=== PATIENT | female | born 1955 | race Caucasian/White ===

== ENCOUNTER 2017-01-25 01:04 | Emergency (ER) | payer OTHER ==
[2017-01-25 01:15] VITALS: BP 138/91; PULSE 77; TEMP 98.6; BMI 25.0
--- NOTE | 2017-01-25 01:16 | PDOC ---
History of Present Illness - General Chief Complaint: Bite Stated Complaint: BEE STING LEFT HAND - History of Present Illness Initial Comments: This 61-year-old woman, with no significant past medical history but sensitivity /ALLERGY to insect venom, presents with swollen left hand approximately 30 hours after apparent bee sting. Patient states that she was gardening yesterday at approximately 4 PM when an insect which she identified as a bee stung her on the left hand between the third and fourth fingers. Her believes he took the stinger out of the wound. Subsequent to this, the patient used an EpiPen that she was prescribed by her doctor. She also applied ice the area and elevated the arm. She took no other medications. Today, she has had progressive swelling and discomfort of the hands with edema now extending to the wrist. She denies any lip/tongue edema. She has had no difficulty swallowing or breathing. She states that her sensitivity to insect venom has only caused local swelling and discomfort and she has never had any anaphylactic reaction to insect bites. Past History - Past Medical History Allergies/Adverse Reactions: Allergies Allergy/AdvReac Type Severity Reaction Status Date / Time No Known Drug Allergies Allergy Unverified 10/21/14 10:53 Home Medications: Ambulatory Orders Clobetasol Propionate/Emoll [Clobetasol Emollient 0.05% Crm] 1 gm TP BID #30 gm 01/25/17 Prednisone [Deltasone -] 40 mg PO DAILY #8 tablet 01/25/17 Anemia: No Asthma: No Cancer: No Cardiac Disorders: Yes (HEART MURMUR) CVA: No COPD: No CHF: No Dementia: No Diabetes: No GI Disorders: No Disorders: No HTN: No Hypercholesterolemia: Yes Liver Disease: No Seizures: No Thyroid Disease: No - Surgical History Abdominal Surgery: No Appendectomy: No Cardiac Surgery: No Cholecystectomy: No Lung Surgery: No Neurologic Surgery: No Orthopedic Surgery: No - Psycho/Social/Smoking Cessation Hx Anxiety: No Suicidal Ideation: No Smoking History: Current every day smoker Have you smoked in the past 12 months: Yes Number of Cigarettes Smoked Daily: 8 Information on smoking cessation initiated: Yes 'Breaking Loose' booklet given: 11/21/14 Hx Alcohol Use: Yes (0-2 DRINKS DAILY) Drug/Substance Use Hx: No Substance Use Type: None Review of Systems - Review of Systems Able to Perform ROS?: Yes Comments:: 12 point review of systems is negative except for what is noted in the history of present illness *Physical Exam - Vital Signs Last Vital Signs Temp Pulse Resp BP Pulse Ox 98.6 F 77 18 138/91 96 01/25/17 01:12 01/25/17 01:12 01/25/17 01:12 01/25/17 01:01/25/17 01:12 - Physical Exam Comments: GENERAL: Adult female, alert and oriented 3, in no acute distress HEAD: Normal with no signs of trauma. EYES: PERRLA, EOMI, sclera anicteric, conjunctiva clear. ENT: Ears normal, nares patent, oropharynx clear without exudates. Moist mucous membranes. Lips/tongue/uvula are nonedematous NECK: Normal range of motion, supple without lymphadenopathy, JVD, or masses. No stridor LUNGS: Breath sounds equal, clear to auscultation bilaterally. No wheezes, and no crackles. HEART:Regular rate and rhythm, normal S1 and S2 without murmur, rub or gallop. ABDOMEN:.normal bowel sounds No guarding,tenderness or rebound.No masses No distention. EXTREMITIES: Left upper extremitymarked edema of all fingers and hand ; flexion and extension limited but still possible No erythema/fluctuance/ lymphangitic streaking or other evidence of cellulitis Remainder of the extremity exam is normal NEUROLOGICAL: Cranial nerves II through XII grossly intact. Normal speech. No focal neurological deficits. MUSCULOSKELETAL: Back non-tender to palpation, no CVA tenderness Progress Note - Progress Note Progress Note: This 61-year-old woman with a history of sensitivity insect venom presents a little over 24 hours after being stung by an insect on the left hand. The hand has become markedly edematous since then. Forearm is not involved and no evidence of compartment syndrome. There is no history of facial edema or airway compromise. Patient will be given 125 mg of Solu-Medrol IM to treat her large local reaction to the insect venom. Because she has had itchiness as well as discomfort of the hand, prescriptions for prednisone 40 mg daily for 4 days as well as clobetasol 0.5% cream for topical treatment of the area will be sent to her pharmacy. Also, she can take antihistamines as needed for the itching ( nonsedating during the day/Benadryl at night). Patient will be given Benadryl 25 mg now. Patient advised to return to ER if swelling is persistent or progressive; also, patient and her have been advised to return or see her doctor if there is any evidence of secondary infection in the area (redness/drainage/increased pain) *DC/Admit/Observation/Transfer Diagnosis at time of Disposition: Allergic reaction to bee sting - Discharge Dispostion Disposition: HOME Condition at time of disposition: Stable - Prescriptions Prescriptions: Clobetasol Propionate/Emoll [Clobetasol Emollient 0.05% Crm] 1 gm TP BID #30 gm Prednisone [Deltasone -] 40 mg PO DAILY #8 tablet - Referrals Referrals: Allyn Pace MD [Primary Care Provider] - - Patient Instructions Printed Discharge Instructions: DI for General Allergic Reactions, DI for Insect Bites and Stings Additional Instructions: Prednisone 40 mg daily for the next 4 days (take with food) Clobetasol cream twice a day to area of swelling for next 5 days Antihistamine as needed for itching(Zyrtec/Claritin during the day; Benadryl at night) Continue cool compresses and elevation of the left arm for the next few days Return here or see your doctor if area becomes red/painful/more swollen followup with your doctor within 1 week
[2017-01-25] MEDS ORDERED: methylPREDNISolone NA SUCC 125 MG/2 ML VIAL IVPB ONE (01:35)
[2017-01-25] MEDS ORDERED: diphenhydrAMINE HCL 25 MG CAPSULE (FP) PO ONE ×2 (01:36→01:46)
[2017-01-25] MEDS ORDERED: methylPREDNISolone NA SUCC 125 MG/2 ML VIAL IM ONE (01:46)
[2017-01-25] MEDS ORDERED: methylPREDNISolone NA SUCC 125 MG/2 ML VIAL ONE (01:47)
== END 2017-01-25 02:03 | disposition home or self-care (01) ==
LOC: FER 01:04
PROC: 3E023GC Introduction of Other Therapeutic Substance into Muscle, Percutaneous Approach (ICD-10-PCS; principal; 2017-01-25)
DX: T63.441A Toxic effect of venom of bees, accidental (unintentional), initial encounter (principal); Y92.096 Garden or yard of other non-institutional residence as the place of occurrence of the external cause; Y93.9 Activity, unspecified; R01.1 Cardiac murmur, unspecified; E78.00 Pure hypercholesterolemia, unspecified; F17.210 Nicotine dependence, cigarettes, uncomplicated
CPT/HCPCS: 99281-25

== ENCOUNTER 2020-02-01 17:40 | Emergency (ER) | payer OTHER ==
[2020-02-01] MEDS ORDERED: DIPHTH,PERTUSS(ACELL),TET 0.5 ML DISP.SYRIN IM ONE ×2 (17:47→17:58)
[2020-02-01 17:56] VITALS: BP 156/100; PULSE 81; TEMP 98; BMI 25.7
--- NOTE | 2020-02-01 18:13 | PDOC ---
History of Present Illness - General Chief Complaint: Bite Stated Complaint: BEE STING YESTERDAY TO LEFT HAND Time Seen by Provider: 02/01/20 17:43 - History of Present Illness Initial Comments: 02/01/20 18:03 64 F smoker with allergy to bee venom presented to the ED after an urgent care. She had a bee stint yesterday while outside. The bee stint was completely removed and disposed per . Quickly, she use epi pen as preventive medication. Airway was always intact. This morning, she woke up with a swollen left arm. She went to an urgent care where they gave her a one dose of prednisone and augmentin, and prescription of prednisone. She still got bothered by the progressive swelling on her fingers and arms. This is why she is here. While she is at the ED, she is hemodynamically stable, airway is stable. Denies nausea/vomiting/diarrhea/difficulty breathing. PMHX: as in HPI PSHX: none Meds: none Allergies: bee venom Tob: 10 cigs per day. Etoh: 3 glass per day. Rec drugs: denies ROS GENERAL/CONSTITUTIONAL: No fever or chills. No weakness. HEAD, EYES, EARS, NOSE AND THROAT: No change in vision. No ear pain or discharge. No sore throat. CARDIOVASCULAR: No chest pain or shortness of breath RESPIRATORY: No cough, wheezing, or hemoptysis. GASTROINTESTINAL: No nausea, vomiting, diarrhea or constipation. GENITOURINARY: No dysuria, frequency, or change in urination. MUSCULOSKELETAL: left arm pain/swelling. No neck or back pain. SKIN: No rash NEUROLOGIC: No headache, vertigo, loss of consciousness, or change in strength/sensation. ENDOCRINE: No increased thirst. No abnormal weight change HEMATOLOGIC/LYMPHATIC: No anemia, easy bleeding, or history of blood clots. ALLERGIC/IMMUNOLOGIC: No hives or skin allergy. PE GENERAL: Awake, alert, and fully oriented, in no acute distress HEAD: No signs of trauma, normocephalic, atraumatic EYES: PERRLA, EOMI, sclera anicteric, conjunctiva clear ENT: Auricles normal inspection, hearing grossly normal, nares patent, oropharynx clear without exudates. Moist mucosa NECK: Normal ROM, supple, no lymphadenopathy, JVD, or masses LUNGS: No distress, speaks full sentences, clear to auscultation bilaterally HEART: Regular rate and rhythm, normal S1 and S2, no murmurs, rubs or gallops, peripheral pulses normal and equal bilaterally. ABDOMEN: Soft, nontender, normoactive bowel sounds. No guarding, no rebound. No masses EXTREMITIES : Normal range of motion, +edema on the left arm. +Erythema, nontender, edematous. fourth digit has bruises. NEUROLOGICAL: Cranial nerves II through XII grossly intact. Normal speech, normal gait, no focal sensorimotor deficits SKIN: Warm, Dry, normal turgor, no rashes or lesions noted Past History - Medical History Allergies/Adverse Reactions: Allergies Allergy/AdvReac Type Severity Reaction Status Date / Time bee venom protein (honey bee) Allergy Intermediate Swelling Verified 02/01/20 17:42 No Known Drug Allergies Allergy Intermediate Verified 02/01/20 17:57 Home Medications: Ambulatory Orders predniSONE [Deltasone -] 40 mg PO DAILY #8 tablet 01/25/17 Amoxicillin/Potassium Clav [Augmentin 875-125 Tablet] 1 tab PO BID 02/01/20 Cephalexin [Keflex] 500 mg PO QID 7 Days #28 capsule 02/01/20 Rosuvastatin Calcium [Crestor] 5 mg PO DAILY 02/01/20 Anemia: No Asthma: No Cancer: No Cardiac Disorders: Yes (HEART MURMUR) CVA: No COPD: No CHF: No Dementia: No Diabetes: No GI Disorders: No Disorders: No HTN: No Hypercholesterolemia: Yes Liver Disease: No Seizures: No Thyroid Disease: No - Surgical History Abdominal Surgery: No Appendectomy: No Cardiac Surgery: No Cholecystectomy: No Lung Surgery: No Neurologic Surgery: No Orthopedic Surgery: No - Psycho-Social/Smoking History Smoking History: Current every day smoker Have you smoked in the past 12 months: Yes Number of Cigarettes Smoked Daily: 10 Information on smoking cessation initiated: No 'Breaking Loose' booklet given: 11/21/14 - Substance Abuse Hx (Audit-C & DAST Scrn) How often the patient has a drink containing alcohol: 4 0r more times/wk Number of drinks the patient has on a typical day: 3 or 4 How often the patient has six or more drinks on one occasion: Never Score: In Men: 4 or > Positive; In Women: 3 or > Positive: 5 Screen Result (Pos requires Nsg. Audit-10AR): Positive In the last yr the pt used illegal drug/Rx for NonMed reason: No Score: Yes response is considered Positive: 0 Screen Result (Positive result requires Nsg. DAST-10): Negative *Physical Exam - Vital Signs Last Vital Signs Temp Pulse Resp BP Pulse Ox 98 F 81 16 156/100 97 02/01/20 17:41 02/01/20 17:41 02/01/20 17:41 02/01/20 17:41 02/01/20 17:41 Medical Decision Making - Medical Decision Making 02/01/20 18:13 Boostrix is updated Treated this as cellulits, will prescribe keflex and f/u with PCP, benadryl PRN. Discharge - Discharge Information Problems reviewed: Yes Clinical Impression/Diagnosis: Cellulitis Condition: Stable Disposition: HOME - Additional Discharge Information Prescriptions: Cephalexin [Keflex] 500 mg PO QID 7 Days #28 capsule - Follow up/Referral - Patient Discharge Instructions Additional Instructions: You were seen in the ED for complaints of left arm swollen. In the ED you were evaluated with physical exam. Your result was positive for sign of cellulitis There does not appear to be an acute need for immediate hospitalization. You are advised to follow up with your Primary Care Physician within 1 week. You were given a prescription for antibiotic keflex. You already have a prescription for steroid. Return to the ED immediately if you experience worsening pain, swelling, limited movement. For pain, you can take tylenol, motrin. Please apply ice indirectly to the wound to help with the swelling, inflammation. - Post Discharge Activity
[2020-02-01] MEDS ORDERED: CEPHALEXIN MONOHYDRATE 500 MG CAPSULE (UD) PO ONE (18:27)
[2020-02-01] MEDS ORDERED: CEPHALEXIN MONOHYDRATE 500 MG CAPSULE (UD) ONE (18:29)
--- NOTE | 2020-02-01 18:32 | PDOC ---
Attending Attestation - Resident Resident Name: Stepan Mayes - ED Attending Attestation I have performed the following: I have examined & evaluated the patient, The case was reviewed & discussed with the resident, I agree w/resident's findings & plan, Exceptions are as noted - HPI HPI: 02/01/20 18:27 [id number] p/w left hand and distal FA swelling after receiving a hornet sting to the left 4th finger. She has no known bee allergy and no other allergies to medications or environmental exposures. She was seen at Urgent Care after the sting and was given prednisone (with 3 day 40 mg/day home prescription) and also was started on Augmentin this morning because her hand and arm had become so swollen. She denies any pain to the area, notes that it is actually itchy more than anything else. No pain with ROM of any of the joints, no drainage from the sting site, the stinger is no longer in the wound. She does note some bruising which developed at the sting site. Denies malaise, f/c/n/v/d/c, lightheadedness, dizziness, WILHELM, SOB, wheezing, throat closing, lip swelling, tongue swelling, or other issues. - Physicial Exam PE: 02/06/20 03:13 GENERAL: very well-appearing, nontoxic, A/Ox4, no distress, answers questions appropriately, standing for the duration of exam, at her side who is supportive HEENT: PERRLA, EOMI, moist mucous membranes NECK/BACK: no midline ttp, no spinal step-off or deformity, no hematoma, full ROM, neck supple CARDIOVASCULAR: regular rate/rhythm, no MGR, strong peripheral pulses, capillary refill <2 seconds, extremities wwp LUNGS/RESPIRATORY: no respiratory distress, CTAB GI/ABDOMEN: symmetric [id number], normoactive BS, soft, no ttp, no midline pulsatile masses : no CVA tenderness MSK/EXTREMITIES: left hand and distal FA with redness and warmth and swelling without any ttp at all, no overlying hives, no induration or fluctuance, no streaking erythema, compartments soft, pulses 2+ radial and ulnar arteries, full ROM to all left digits and to left wrist without restriction or pain, left 4th digit with ecchymosis at hornet sting site (as stated by patient and ) without stinger or other FB seen or palpated, minimal tenderness to stung digit, otherwise MSK with no muscle atrophy, no acute deformity SKIN: other than findings on MSK/Extremities exam, skin is warm and dry, no pallor, no jaundice, no rash, no pathologic-appearing bruising, no skin breakdown, no cuts, no lesions NEUROLOGICAL: GCS 15, CN II-XII grossly intact, 5/5 strength proximally and distally, no facial droop - Medical Decision Making 02/06/20 03:16 [id number] p/w stated hornet sting yesterday, now with hand swelling and redness and warmth. Received Benadryl and Prednisone doses and home courses from already. No other signs/sxs of allergic reaction. Initial Vital Signs Temp Pulse Resp BP Pulse Ox 98 F 81 16 156/100 97 02/01/20 17:41 02/01/20 17:41 02/01/20 17:41 02/01/20 17:41 02/01/20 17:41 Most likely local reaction to hornet sting. There is no visible or palpable stinger in the sting/bite site on the left digits. No tenderness to palpation along the entire swollen area of the left distal UE, and there is mild ttp to the sting site itself. No systemic symptoms, no wheezing or throat closing or itching. The patient likely has a localized reaction to the bee sting, this is not consistent with more serious allergic reaction. However given the fact that the reaction is quite erythematous and swollen will treat for possible early cellulitis with Keflex, as well as instruct the patient on continued tx for the allergic reaction. She is appropriate for discharge home with close outpatient f/u and is instructed to take the Benadryl and Prednisone exactly as prescribed, as well as the Keflex, and to come back for any new or worsening symptoms. Dispo per resident note. Discharge - Discharge Information Problems reviewed: Yes Clinical Impression/Diagnosis: Cellulitis Qualifiers: Site of cellulitis: extremity Site of cellulitis of extremity: upper extremity Laterality: left Qualified Code(s): L03.114 - Cellulitis of left upper limb Allergic reaction Qualifiers: Encounter type: initial encounter Qualified Code(s): T78.40XA - Allergy, unspecified, initial encounter Condition: Stable Disposition: HOME - Additional Discharge Information Prescriptions: Cephalexin [Keflex] 500 mg PO QID 7 Days #28 capsule - Follow up/Referral - Patient Discharge Instructions Additional Instructions: You were seen in the ED for complaints of left arm swollen. In the ED you were evaluated with physical exam. Your result was positive for sign of cellulitis There does not appear to be an acute need for immediate hospitalization. You are advised to follow up with your Primary Care Physician within 1 week. You were given a prescription for antibiotic keflex. You already have a prescription for steroid. Return to the ED immediately if you experience worsening pain, swelling, limited movement. For pain, you can take tylenol, motrin. Please apply ice indirectly to the wound to help with the swelling, inflammation. - Post Discharge Activity
== END 2020-02-01 18:33 | disposition home or self-care (01) ==
LOC: FER 17:40
PROC: 3E0234Z Introduction of Serum, Toxoid and Vaccine into Muscle, Percutaneous Approach (ICD-10-PCS; principal; 2020-02-01)
DX: L03.114 Cellulitis of left upper limb (principal); T78.40XA Allergy, unspecified, initial encounter
CPT/HCPCS: 90715; 99284-25

== ENCOUNTER 2023-09-10 12:40 | Day surgery (SDC) | payer OTHER ==
[2023-09-05 17:29] VITALS: BMI 25.4
[2023-09-10 13:30] VITALS: TEMP 97
[2023-09-10 13:54] VITALS: BP 122/67; PULSE 79; RESP 18
== END 2023-09-10 14:07 | disposition home or self-care (01) ==
LOC: FASU-ENDO 12:40
PROVIDERS: ATTEND Internal Medicine Gastroenterology
PROC: 0DJD8ZZ Inspection of Lower Intestinal Tract, Via Natural or Artificial Opening Endoscopic (ICD-10-PCS; principal; 2023-09-10 13:11)
DX: Z12.11 Encounter for screening for malignant neoplasm of colon (principal); K64.1 Second degree hemorrhoids